=== PATIENT | female | born 1950 | race Two or more races ===

== ENCOUNTER 2021-02-19 21:23 | Emergency (ER) | payer MEDICARE, MEDICAID ==
[~2021-02-19] VITALS: Ht 160 cm; Wt 81.6 kg
[2021-02-19 22:29] LABS: Basophils # (auto) 0 10 ^3/uL (0-0.2); Basophils % (auto) 0.6 % (0.0-2.0); Eosinophils # (auto) 0.1 10 ^3/uL (0-0.8); Eosinophils % (auto) 1.4 % (0.0-7.0); Hematocrit 39.5 % (36.0-46.0); Hemoglobin 13.1 g/dL (12.2-16.2); Lymphocytes # (auto) 1.9 10 ^3/uL (0.4-5.4); Lymphocytes % (auto) 31.7 % (10.0-50.0); Mean Corpuscular Hgb Conc. 33.2 g/dL (32.0-36.0); Mean Corpuscular Volume 93.5 fL (80.0-100.0); Monocytes # (auto) 0.5 10 ^3/uL (0-1.3); Monocytes % (auto) 8.5 % (0.0-12.0); Neutrophils # (auto) 3.5 10 ^3/uL (1.6-8.6); Neutrophils % (auto) 57.8 % (37.0-80.0); Nucleated Red Blood Cells % 0.1 %; Red Blood Cells 4.22 10^6/uL (4.0-5.20); Red Cell Distribution Width 13.5 % (11.8-14.3); White Blood Cell 6.1 10^3/uL (4.4-10.8)
[2021-02-19 22:47] LABS: Calcium 10.1 mg/dL (8.5-10.1); Chloride 99 mmol/L (98-107); Potassium 4.3 mmol/L (3.5-5.1); Sodium 132 mmol/L (136-145)
[2021-02-19 23:03] LABS: Alanine Aminotransferase 189 U/L (13-56); Albumin 3.2 g/dL (3.4-5.0); Alkaline Phosphatase 586 U/L (45-117); Anion Gap 3 (5-15); Aspartate Aminotransferase 70 U/L (15-37); BUN/Creatinine Ratio 23.7; Blood Urea Nitrogen 22 mg/dL (7-18); Carbon Dioxide 30 mmol/L (21-32); GFR African American 76 mL/min; GFR Non-African American 63 mL/min; Lipase 457 U/L (73-393); Total Protein 8.2 g/dL (6.4-8.2)
[2021-02-19 23:04] LABS: Glucose 482 mg/dL (74-106)
[2021-02-20] MEDS ORDERED: IOHEXOL 300 MG/ML 100ML BOTTLE IJ ONE (03:12)
[2021-02-20 06:34] LABS: Urine Bacteria NONE SEEN /hpf (None Seen); Urine Blood Negative /uL (Negative); Urine WBC 2 /hpf (0 - 5)
[2021-02-20 06:35] LABS: Urine Specific Gravity > 1.050 (1.001-1.035)
[2021-02-20] MEDS ORDERED: SODIUM CHLORIDE 0.9% 1,000 ML IV ONE (06:45)
[2021-02-20 08:53] VITALS: BP 145/73
== END 2021-02-20 09:17 | disposition short-term general hospital (02) ==
LOC: ER 21:23 → EDBD 21:23 → ER 02-20 09:17
DX: K83.1 Obstruction of bile duct (principal); E11.9 Type 2 diabetes mellitus without complications; Z90.49 Acquired absence of other specified parts of digestive tract; Z20.822 Contact with and (suspected) exposure to COVID-19
CPT/HCPCS: 36415; 74177; 80053; 81001; 82962; 83605; 83690; 84484; 85025; 87426; 93005; 96360; 96361; 99285; Q9967